=== PATIENT | male | born 1980 ===

== ENCOUNTER 2022-01-16 23:02 | Emergency (ER) | payer SELFPAY ==
[2022-01-16] MEDS ORDERED: FAMOTIDINE 20 MG TAB PO ONE (23:55)
[2022-01-16] MEDS ORDERED: diphenhydrAMINE 25 MG CAP PO ONE (23:55)
[2022-01-16] MEDS ORDERED: methylPREDNISolone Sod Succinate 125 MG/2 ML INJ IM ONE (23:55)
--- NOTE | 2022-01-17 01:02 | Emergency Department Report ---
ED Allergic Reaction HPI - General Chief complaint: Allergic Reaction Stated complaint: ALLERGY Source: patient Mode of arrival: Ambulatory Limitations: Language Barrier - History of Present Illness Initial Comments: Patient is a 41-year-old male with no past medical history who presented to the ED with complaint of acute onset persistent diffuse itchy erythematous maculopapular rash for the last 6 hours after being injected with vitamin D at a clinic 12 hours ago. Patient stated that the itching and rashes have worsened in the last 6 hours. Patient denies swollen lips, swollen throat or face, dysphagia, wheezing or cough, fever, chills, chest pain, abdominal pain, nausea, vomiting and diarrhea. MD Complaint: allergic reaction, hives -: Sudden, days(s) (2) Exposure: medication Symptoms: rash, itching. denies: lip swelling, difficulty swallowing, difficulty breathing, orolingual swelling, hoarseness, syncopy, nausea, vomiting, other Severity: moderate Treatment Prior to Arrival: none Previous Allergy History: none - Related Data Previous Rx's Medication Instructions Recorded Last Taken Type Famotidine [Pepcid] 20 mg PO BID #30 tablet 01/17/22 Unknown Rx diphenhydrAMINE [Benadryl CAP] 50 mg PO Q8HR PRN #30 capsule 01/17/22 Unknown Rx predniSONE [Deltasone] 60 mg PO QDAY #15 tab 01/17/22 Unknown Rx Allergies Allergy/AdvReac Type Severity Reaction Status Date / Time No Known Allergies Allergy Verified 01/16/22 23:24 ED Review of Systems ROS: Stated complaint: ALLERGY Other details as noted in HPI Constitutional: denies: chills, fever Eyes: denies: eye pain, eye discharge, vision change ENT: denies: ear pain, throat pain Respiratory: denies: cough, shortness of breath, wheezing Cardiovascular: denies: chest pain, palpitations Endocrine: no symptoms reported Gastrointestinal: denies: abdominal pain, nausea, vomiting, diarrhea Genitourinary: denies: urgency, dysuria Musculoskeletal: denies: back pain, joint swelling, arthralgia Skin: rash (Diffuse itchy erythematous maculopapular urticarial rashes), change in color, pruritus. denies: lesions Neurological: denies: headache, weakness, paresthesias Psychiatric: denies: anxiety, depression Hematological/Lymphatic: denies: easy bleeding, easy bruising ED Past Medical Hx - Past Medical History Previous Medical History?: No - Surgical History Past Surgical History?: No - Medications Home Medications: Home Medications Medication Instructions Recorded Confirmed Last Taken Type Famotidine [Pepcid] 20 mg PO BID #30 tablet 01/17/22 Unknown Rx diphenhydrAMINE [Benadryl CAP] 50 mg PO Q8HR PRN #30 capsule 01/17/22 Unknown Rx predniSONE [Deltasone] 60 mg PO QDAY #15 tab 01/17/22 Unknown Rx ED Physical Exam - General Limitations: Language Barrier General appearance: alert, in no apparent distress - Head Head exam: Present: atraumatic, normocephalic, normal inspection - Eye Eye exam: Present: normal appearance, PERRL, EOMI Pupils: Present: normal accommodation - ENT ENT exam: Present: normal exam, normal orophraynx, mucous membranes moist, TM's normal bilaterally, normal external ear exam - Neck Neck exam: Present: normal inspection, full ROM. Absent: tenderness - Respiratory Respiratory exam: Present: normal lung sounds bilaterally. Absent: respiratory distress, wheezes, rales, chest wall tenderness, accessory muscle use, decreased breath sounds, prolonged expiratory - Cardiovascular Cardiovascular Exam: Present: regular rate, normal rhythm, normal heart sounds. Absent: systolic murmur, diastolic murmur, rubs, gallop - GI/Abdominal GI/Abdominal exam: Present: soft, normal bowel sounds. Absent: tenderness, guarding, rebound, rigid, hyperactive bowel sounds, hypoactive bowel sounds, organomegaly, mass, pulsatile mass - Extremities Exam Extremities exam: Present: normal inspection, full ROM, normal capillary refill - Back Exam Back exam: Present: normal inspection, full ROM. Absent: tenderness, CVA ten derness (R), CVA tenderness (L), muscle spasm, paraspinal tenderness, vertebral tenderness - Neurological Exam Neurological exam: Present: alert, oriented X3, CN II-XII intact, normal gait, reflexes normal - Psychiatric Psychiatric exam: Present: normal affect, normal mood - Skin Skin exam: Present: warm, dry, intact, rash (Diffuse itchy erythematous maculopapular urticarial rash), erythema, urticaria ED Course Vital Signs 01/16/22 23:24 Temperature 97.7 F Pulse Rate 92 H Respiratory 17 Rate Blood Pressure 103/58 [Right] O2 Sat by Pulse 98 Oximetry ED Medical Decision Making - Medical Decision Making This is a 41-year-old male with no past medical history who presented to the ED with complaint of acute onset persistent diffuse itchy erythematous maculopapular rash for the last 6 hours after being injected with vitamin D at a clinic 12 hours ago. Patient stated that the itching and rashes have worsened in the last 6 hours. In the ED, patient is alert and oriented x3 and is not in distress. Patient is hemodynamically stable. Patient was treated for acute allergic reaction with steroids, Pepcid and Benadryl. On reevaluation, the dave ent's itching resolved, patient is hemodynamically stable and felt better. Patient was discharged home on medications and advised to follow-up with his primary care physician in 5 to 7 days for reevaluation or return to the ED immediately if symptoms get worse. - Differential Diagnosis allergic reaction; Itching with irritation; medication allergic Critical care attestation.: If time is entered above; I have spent that time in minutes in the direct care of this critically ill patient, excluding procedure time. ED Disposition Clinical Impression: Itching with irritation, Drug allergy Acute allergic reaction Qualifiers: Encounter type: initial encounter Qualified Code(s): T78.40XA - Allergy, unspecified, initial encounter Disposition: 01 HOME / SELF CARE / HOMELESS Is pt being admited?: No Does the pt Need Aspirin: No Condition: Stable Instructions: Allergies, Adult, [id number] Additional Instructions: Lenora la medicacin con alimentos, muchos lquidos y sheila un seguimiento con nieto mdico de atencin primaria en 7 a 10 boyer para sivakumar reevaluacin. Regrese al se rvicio de urgencias inmediatamente si los sntomas empeoran. Prescriptions: diphenhydrAMINE [Benadryl CAP] 50 mg PO Q8HR PRN #30 capsule PRN Reason: Itching predniSONE [Deltasone] 60 mg PO QDAY #15 tab Famotidine [Pepcid] 20 mg PO BID #30 tablet Referrals: [facility] [Provider Group] - 3-5 Days Time of Disposition: 01:02 Print Language: BRITISH
[2022-01-17 01:12] VITALS: BP 133/78
== END 2022-01-17 01:12 | disposition home or self-care (01) ==
LOC: ED 23:02
DX: L29.9 Pruritus, unspecified (principal); T78.40XA Allergy, unspecified, initial encounter; X58.XXXA Exposure to other specified factors, initial encounter
CPT/HCPCS: 96372; 99282; J2930